=== PATIENT | male | born 1935 | race Caucasian/White ===

== ENCOUNTER 2018-08-28 14:50 | Emergency (ER) | payer MEDICARE, BC ==
--- NOTE | 2018-09-13 16:49 | ER Physician Documentation ---
DATE OF SERVICE: 08/28/2018 HISTORY OF PRESENT ILLNESS: This is an 83-year-old male patient who was brought into the Emergency Room by child care giver ambulance squad. Apparently, this patient was going to visit a doctor and at the office building across the street from the [facility] when he collapsed suddenly en route to the office building. He was found on the street, unresponsive. Family members called paramedics. Paramedics arrived at the scene, the patient was unresponsive. The paramedics initiated CPR and gave ACLS Lifeline medications and to no avail and then the patient was brought to the Emergency Room for continued evaluation and assessment. Upon arrival in the Emergency Room, the patient was comatose and cardiac pulmonary arrest. PAST MEDICAL HISTORY: Was found to be that the patient has a past medical history of diabetes mellitus, hypertension, congestive heart failure, hyperlipidemia, gouty arthritis. ALLERGIES: The patient is allergic to SULFA ANTIBIOTICS. FAMILY HISTORY: Not known. REVIEW OF SYSTEMS: Unable to be obtained of course because the patient was comatose. PHYSICAL EXAMINATION: GENERAL: Found a comatose patient in cardiopulmonary arrest. Pupils were fixed and dilated. VITAL SIGNS: There were no complications. There were no heart sounds. There were no lung sounds. The monitor revealed asystole and flat line. HOSPITAL COURSE: CPR was continued, the patient was intubated, opening the patient's mouth, a #4 Rose Mary blade was easily inserted into the oral cavity, lifting up the vallecula and the epiglottis. The trachea was easily exposed and a 7.5 oral endotracheal tube was easily inserted into the trachea. The CO2 light immediately turned yellow and breath sounds were heard equally bilaterally with bagging. The patient had good breath sounds with bagging equally. Unfortunately during the course, CPR was continued. The patient was bagged with oxygen. Multiple doses of epinephrine were given and sodium bicarbonate were given. Despite these measures, unfortunately, the patient did not improve and the patient remained in asystole and flat line. Again during the ER course, CPR was initiated, ACLS protocol was performed. Please refer to complete code sheet for complete details, please refer to medication sheet for complete details. Despite all these measures, the patient did not improve and remained in asystole and the patient was subsequently pronounced. The patient's private physician and family of course were notified and this basically concludes the report and please refer to all the notes for complete further details. The patient was pronounced at 1528 on 08/28/2018, the patient's private physician and family were notified. FINAL DIAGNOSES: Cardiopulmonary arrest and pronouncement. [facility]# [id number]
== END 2018-08-28 21:35 | disposition expired ==
LOC: ER 14:50
DX: I46.9 Cardiac arrest, cause unspecified (principal); I11.0 Hypertensive heart disease with heart failure; I50.9 Heart failure, unspecified; E11.9 Type 2 diabetes mellitus without complications; M19.90 Unspecified osteoarthritis, unspecified site; Z88.2 Allergy status to sulfonamides
CPT/HCPCS: J7030; Z7610